=== PATIENT | female | born 2000 | race Caucasian/White ===

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

== ENCOUNTER 2019-10-20 17:51 | Emergency (ER) | payer OTHER ==
[~2019-10-20] VITALS: Ht 170.2 cm; Wt 90.7 kg
[2019-10-20] MEDS ORDERED: SUDAFED 12-HOU120 MG PO (18:23)
== END 2019-10-20 18:29 | disposition home or self-care (01) ==
LOC: ED 17:51
DX: H69.93 Unspecified Eustachian tube disorder, bilateral (principal); H92.03 Otalgia, bilateral; Z87.891 Personal history of nicotine dependence
CPT/HCPCS: 99282